=== PATIENT | male | born 1955 | race Caucasian/White ===

== ENCOUNTER 2019-09-11 13:43 | Emergency (ER) | payer OTHER ==
[~2019-09-11] VITALS: Ht 177.8 cm; Wt 104.3 kg
[~2019-09-11 13:43] MED LIST: BENICAR20 MG PO; LOSARTAN POTASS50 MG PO; NORCO 5-325 TA1 EACH PO
[2019-09-11] MEDS ORDERED: LOVASTATIN20 MG PO (13:56)
== END 2019-09-11 15:24 | disposition home or self-care (01) ==
LOC: ED 13:43
PROC: 0XQTXZZ Repair Left Ring Finger, External Approach (ICD-10-PCS; principal; 2019-09-11)
PROC: 0XQRXZZ Repair Left Middle Finger, External Approach (ICD-10-PCS; 2019-09-11)
DX: S61.213A Laceration without foreign body of left middle finger without damage to nail, initial encounter (principal); S61.215A Laceration without foreign body of left ring finger without damage to nail, initial encounter; I10 Essential (primary) hypertension; Z85.46 Personal history of malignant neoplasm of prostate; Z79.899 Other long term (current) drug therapy; W26.0XXA Contact with knife, initial encounter
CPT/HCPCS: 12002; 90471; 90715; 99282-25

== ENCOUNTER 2023-05-05 06:30 | Day surgery (SDC) | payer OTHER ==
[~2023-05-05] VITALS: Ht 177.8 cm; Wt 97.9 kg
[~2023-05-05 06:30] MED LIST changes: +HYDROCHLOROTHIA25 MG PO; +LOVASTATIN20 MG PO
[2023-05-05 06:46] VITALS: BP 137/77
--- NOTE | 2023-05-05 08:09 | NUR ---
05/05/23 0809 Faby Hickey 0805- PT TO PACU IN LL POSITION. EYES CLOSED BUT OPENS TO VERBAL ANDT ACTILE STIMULI. PT DENIES PAIN AND FALLS BACK TO SLEEP. BREATHING EASY AND UNLABORED. SPO2 >95% ON 1L O2 NC. O2 TITRATED TO ROOM AIR. PT ENCOURAGED TO PASS GAS AND EDUCATED ABOUT THE POC IN PACU.
[2023-05-05 08:52] VITALS: BP 120/73
--- NOTE | 2023-05-05 09:48 | OR ---
[facility] [address] [place], [place] [address] Signed DATE OF OPERATION: 05/05/2023 SURGEON: Evon Fletcher MD PREOPERATIVE DIAGNOSES: History of adenomatous polyp of right colon in 2009 and known diverticulosis. POSTOPERATIVE DIAGNOSES: 1. Diverticulosis of sigmoid and left colon. 2. Adenomatous polyp of right colon. PROCEDURE: Total colonoscopy to cecum with cold morcellation polypectomy x1. ANESTHESIA: Intravenous sedation; fentanyl 100 mcg and Versed 4 mg total. INDICATION: This 67-year-old white man is a patient of EVELIA Newberry. He underwent colonoscopy by me in 2009. At that time, he was found to have a right-sided adenoma, which was excised as well as diverticulosis. He was recommended to have repeat colonoscopy in 2 to 3 years, but that did not come to pass. He is now here to undergo colonoscopy for surveillance. He understands the risk of bleeding, infection and perforation related to colonoscopy and wished to proceed. Additionally, the patient underwent excision of a skin lesion of his left knee nearly a month ago by a field sales manager in [place]. His wound dehisced in the past 48 hours and evaluation of that shows no sign of active infection, but a wound approximately 3 cm in length. Advice was given on wound care anticipating possibly a delayed secondary closure. FINDINGS: The prep was excellent. Complete colonoscopy was undertaken to the cecum without question. He had diverticulosis of the sigmoid and left colon as before. Additionally, he had a small polyp of the right colon which was excised with cold morcellation technique. As regards to the wound, it is not actively infected but was definitely dehisced for which wound care plans are underway. Electronically Signed By: EVON FLETCHER MD 05/05/23 0948 PATIENT NAME: EVON HAJI OPERATIVE REPORT DATE OF : 59 REPORT #: [id number] PHYSICIAN: EVON FLETCHER MD PCP: ANTWON MORIN REPORT IS CONFIDENTIAL AND NOT TO BE RELEASED WITHOUT AUTHORIZATION [facility] [address], [place] [address] Signed DESCRIPTION OF PROCEDURE: The patient was brought to the endoscopy suite and placed in the lateral decubitus position; given intravenous sedation to the point of slurred speech and nystagmus. Digital rectal examination was normal. An Olympus video colonoscope was passed in the rectum and manipulated throughout the colon noting diverticulosis in the sigmoid and left colon. The scope was advanced ultimately to the cecum. The ileocecal valve and appendiceal orifice were normal. The scope was withdrawn and at approximately 2/3rd the distance from the cecum to the hepatic flexure, a small adenomatous polyp was noted. This was excised with cold morcellation technique completely. The scope was withdrawn further and remaining colon had no evidence of other polyps, only diverticulosis. The rectum was normal as well. The scope was removed and the patient was taken to the recovery room in good condition. CONCLUDING DIAGNOSIS: Polyp of right colon and diverticulosis. PLAN: 1. Recommend repeat colonoscopy in 3 to 5 years, sooner if clinically indicated. 2. Wound care to include plain gauze dressing change b.i.d. We will evaluate the wound in the next 10 days. If granulating well, secondary closure may be possible. Evon Fletcher MD JM/MODL /[id number] cc: EVELIA Newberry Copies: ANTWON MORIN ~ Electronically Signed By: EVON FLETCHER MD 05/05/23 0948 PATIENT NAME: EVON HAJI OPERATIVE REPORT DATE OF : 59 REPORT #: [id number] PHYSICIAN: EVON FLETCHER MD PCP: ANTWON MORIN REPORT IS CONFIDENTIAL AND NOT TO BE RELEASED WITHOUT AUTHORIZATION
--- NOTE | 2023-05-07 16:55 | PATH ---
[facility] [address] [place], [place] [address] Signed SPECIMEN(S): A ASCENDING/RIGHT COLON POLYP SPECIMEN SOURCE: A. ASCENDING/RIGHT COLON POLYP CLINICAL HISTORY: 2009 hx adenomatous polyp x 1, ascending colon. Post: Diverticulosis, polyp x1. FINAL PATHOLOGIC DIAGNOSIS: Ascending / right colon polyp: - Benign colonic mucosa with slight polypoid features. - Features focally suggestive of serrated polyp / adenoma (two fragments). JVR:[facility]:C2NR MICROSCOPIC EXAMINATION: Histologic sections of all submitted blocks are examined by light microscopy. These findings, together with the gross examination, support the pathologic diagnosis. GROSS DESCRIPTION: The specimen, labeled and designated "Vanhouten, ascending/right colon polyp," is received in formalin and consists of four cruz soft tissue fragments, ranging from 0.3-0.4 cm. Entirely submitted in (A1). VB (under the direct supervision of a pathologist) The Gross Description was prepared using a voice recognition system. The report was reviewed for accuracy; however, sound-alike word errors, addition and/or deletions may occur. If there is any question about this report, please contact Client Services. PERFORMING LABORATORY: The technical component was performed by [facility], [address] [place] [id number] (CLIA# [id number]). Professional interpretation was performed by [facility] - [facility], [address] [place] [id number] (CLIA#: [id number]). Diagnostician: Robin Herbert MD Pathologist Electronically Signed 05/07/2023 PATIENT NAME: EVON HAJI PATHOLOGY DATE OF : 59 REPORT #: [id number] PHYSICIAN: [facility] PCP: ANTWON MORIN REPORT IS CONFIDENTIAL AND NOT TO BE RELEASED WITHOUT AUTHORIZATION [address] [address] Signed Copies: ~ PATIENT NAME: EVON HAJI PATHOLOGY DATE OF : 59 REPORT #: [id number] PHYSICIAN: [facility] PCP: ANTWON MORIN REPORT IS CONFIDENTIAL AND NOT TO BE RELEASED WITHOUT AUTHORIZATION
== END 2023-05-05 08:55 | disposition home or self-care (01) ==
LOC: OPS 06:30 → DS 06:30 → OPS 07:30 → DS 07:30 → OPS 08:55
PROVIDERS: ATTEND Surgery
PROC: 0DBF8ZZ Excision of Right Large Intestine, Via Natural or Artificial Opening Endoscopic (ICD-10-PCS; principal; 2023-05-05 07:30)
DX: Z12.11 Encounter for screening for malignant neoplasm of colon (principal); K57.30 Diverticulosis of large intestine without perforation or abscess without bleeding; K63.5 Polyp of colon; T81.31XA Disruption of external operation (surgical) wound, not elsewhere classified, initial encounter; Y83.8 Other surgical procedures as the cause of abnormal reaction of the patient, or of later complication, without mention of misadventure at the time of the procedure; I10 Essential (primary) hypertension; Z86.010 Personal history of colon polyps; Z90.79 Acquired absence of other genital organ(s)
CPT/HCPCS: 99153; G0500; J2250; J3010

== ENCOUNTER 2025-09-14 17:06 | Emergency (ER) | payer OTHER ==
[~2025-09-14] VITALS: Ht 177.8 cm; Wt 105.0 kg
[~2025-09-14 17:06] MED LIST changes: +AMOX TR-K CLV1 EAC1 PO; +HYDROCODON-ACE1 EA10 PO; +LOSARTAN-HCTZ1 EACH PO
[2025-09-14] MEDS ORDERED: HYDROmorphone HCL 1 MG/ML SYR IV ONE (18:00)
[2025-09-14 18:40] LABS: ALT (SGPT) 17.0 U/L (14-59); AST (SGOT) 23.0 U/L (15-37); GLOMERULAR FILTRATION RATE,EST 47.0 mL/min (>60); PROTEIN, TOTAL 7.1 g/dL (6.4-8.2); UREA NITROGEN 25.0 mg/dL (7-18)
[2025-09-14 18:49] LABS: BASOPHILS 0.4 % (0.2-1.2); EOSINOPHILS 2.3 % (0.8-7.0); LYMPHOCYTES 19.9 % (21.8-53.1); MCH 30.1 PG (25.7-32.2); MCHC 33.0 g/dL (32.3-36.5); MCV 91.2 fL (79.0-92.2); MONOCYTES 10.7 % (5.3-12.2); NEUTROPHILS 66.4 % (34.0-67.9); RBC 4.22 M/uL (4.63-6.08)
[2025-09-14] MEDS ORDERED: HYDROCODONE BIT/ACETAMINOPHEN 5/325 MG 1 TAB HOME.PACK PO ONE (21:00)
[2025-09-14 21:08] VITALS: BP 127/76
== END 2025-09-14 21:08 | disposition home or self-care (01) ==
LOC: ED 17:06
PROVIDERS: Emergency Medicine
DX: S76.112A Strain of left quadriceps muscle, fascia and tendon, initial encounter (principal); I10 Essential (primary) hypertension; X50.0XXA Overexertion from strenuous movement or load, initial encounter
CPT/HCPCS: 36415; 73552; 73560; 73700; 80053; 85025; 96374; 99284-25; A9270; J1171